=== PATIENT | male | born 1990 | race Asian ===

== ENCOUNTER 2019-07-29 17:33 | Emergency (ER) | payer OTHER ==
[~2019-07-29] VITALS: Ht 180.3 cm; Wt 89.3 kg
[2019-07-29] MEDS ORDERED: ISOT30CA PO (17:39)
[2019-07-29] MEDS ORDERED: KETO10TAB PO (18:47)
--- NOTE | 2019-07-29 18:54 | REP ---
PA and lateral chest: There are no comparisons. The lung reyes are clear. The cardiac size is normal. The sy, mediastinum, and skeletal structures are unremarkable. Impression: Negative PA and lateral chest. Electronically Signed by Robert Zamudio MD 07/29/2019 06:45 P
[2019-07-29] MEDS ORDERED: KETOROLAC 30 MG/ML VIAL (J1885) IM ONE (19:00)
[2019-07-29 19:19] VITALS: BP 144/92
--- NOTE | 2019-07-30 07:36 | ECGEPIP ---
[facility] - ED Test Date: 2019-07-29 Pat Name: VANE CLAY Department: Room: - Gender: Male Nurse Private Duty: : 1990 Requested By: BERNARDINO Tinoco Order Number: [id number] Reading MD: Israel Hawkins Measurements Intervals Social Circle Rate: 77 P: 64 MT: 146 QRS: -22 QRSD: 87 T: 19 QT: 367 QTc: 417 Interpretive Statements SINUS RHYTHM POSSIBLE LEFT ATRIAL ENLARGEMENT BORDERLINE LEFT AXIS DEVIATION INCOMPLETE RIGHT BUNDLE BRANCH BLOCK POSSIBLE LEFT VENTRICULAR HYPERTROPHY NO PRIORS FOR COMPARISON Electronically Signed on 07-30-2019 7:35:54 EDT by Israel Hawkins
== END 2019-07-29 19:28 | disposition home or self-care (01) ==
LOC: M ED 17:33
DX: R07.89 Other chest pain (principal); I45.19 Other right bundle-branch block; I10 Essential (primary) hypertension; J30.89 Other allergic rhinitis; Z79.899 Other long term (current) drug therapy
CPT/HCPCS: 71046; 80047; 93005; 96372; 99284; J1885

== ENCOUNTER → 2019-09-03 | Outpatient (CLI) | payer OTHER ==
[~2019-09-03] MED LIST: ISOT30CA PO; KETO10TAB PO
--- NOTE | 2019-09-04 08:17 | ECHO ---
DATE OF PROCEDURE: 09/03/2019 REFERRING INDIVIDUAL: Ramon Pennyletciiaemilie, Physician Ecd INDICATION: Chest pain, unspecified. HEIGHT: 180 cm WEIGHT: 86 kg 2D MEASUREMENTS: Left ventricle diastole: 5.3 cm Ventricular septum: 0.89 cm Posterior wall: 1.05 cm Aortic root: 3.1 cm Left atrium: 3.3 cm Left atrial volume index: 18 Inferior vena cava: 1.6 cm DOPPLER MEASUREMENTS: No aortic regurgitation. Very mild mitral regurgitation. No tricuspid regurgitation. No pulmonic regurgitation. Aortic valve velocity: 103 cm/s LVOT velocity: 81.2 cm/s Pulmonary artery systolic pressure: 24 mmHg. MITRAL ANNULAR TISSUE DOPPLER: E prime lateral: 12.3 cm/s E prime septal: 11.5 cm/s DESCRIPTION: Rhythm was sinus. Image quality was good. This was a 2D, M-mode, color flow Doppler and pulse wave Doppler examination and included mitral annular tissue Doppler. CONCLUSIONS: 1. Normal echocardiogram Doppler. 2. Normal left ventricle internal dimensions and wall thickness. Normal regional left ventricular (LV) wall motion and wall thickening. Normal LV systolic function. Left ventricular ejection fraction (LVEF) 60% by visual estimate. Normal LV diastolic function. 3. No pericardial effusion.
== END ==
LOC: M CARPUL 09:09
PROVIDERS: ATTEND Physician Assistant
DX: R07.9 Chest pain, unspecified (principal); R03.0 Elevated blood-pressure reading, without diagnosis of hypertension